=== PATIENT | male | born 1970 | race African-American/Black ===

== ENCOUNTER 2021-07-26 18:29 | Inpatient (IN) | payer OTHER ==
[~2021-07-26] VITALS: Ht 180.3 cm; Wt 83.9 kg
[2021-07-26 18:32] VITALS: BP 130/78
[2021-07-26 19:24] LABS: ABSOLUTE NEUTROPHILS 5.5 thou/uL (1.4-8.2); BASOPHILS 0.4 % (0.0-2.0); EOSINOPHILS 0.1 % (0.0-3.0); HEMATOCRIT 51.8 % (42.0-52.0); HEMOGLOBIN 17.2 gm/dL (14.0-18.0); LYMPHOCYTES 7.7 % (24.0-44.0); MCH 26.6 pg (26.0-34.0); MCHC 33.2 g/dL (28.0-37.0); MCV 80.2 fL (80.0-100.0); MONOCYTES 11.3 % (1.0-8.0); PLATELET COUNT 224 thou/uL (150-400); POLYS 80.5 % (36.0-66.0); RBC 6.46 mil/uL (4.50-6.00); WBC 6.8 thou/uL (4.0-11.0)
[2021-07-26 19:35] LABS: CALCIUM 8.5 mg/dL (8.5-10.1); CREATININE 1.6 mg/dL (0.7-1.3); POTASSIUM 4.9 mmol/L (3.5-5.1)
[2021-07-26 22:29] VITALS: BP 106/72
[2021-07-26 22:44] VITALS: BP 106/65
--- NOTE | 2021-07-27 00:51 | NUR ---
PT ADMITTED FROM ER FROM HOME FOR COVID + INCREASED SYMPTOMS AND SOA. A&0X4. VSS AFEBRILE SATS WNL PRESENTLY. NO C/O PAIN. NO S/S DISTRESS. NS AT 100 INFUSING AND ZOSYN LOADING DOSE INFUSING R AC. DENIES PAIN OR SOA PRESENTLY. ORIENTED PT TO RM, FALL PRECAUTONS, MEDICATIONS AND POC. BED DOWN, CALL LIGHTIN REACH, BED ALARM IS ON. INSTRUCTED PT ON ALL PRECAUTIONS.
[2021-07-27 04:33] VITALS: BP 124/80
[2021-07-27 05:15] LABS: CALCIUM 8.1 mg/dL (8.5-10.1); CREATININE 1.8 mg/dL (0.7-1.3); POTASSIUM 4.7 mmol/L (3.5-5.1)
[2021-07-27 05:25] LABS: HEMATOCRIT 45.9 % (42.0-52.0); MCH 26.8 pg (26.0-34.0); MCHC 32.8 g/dL (28.0-37.0); MCV 81.8 fL (80.0-100.0); RBC 5.61 mil/uL (4.50-6.00); RDW 15.3 % (10.5-14.5); WBC 4.3 thou/uL (4.0-11.0)
[2021-07-27 05:29] LABS: HEMOGLOBIN 15.1 gm/dL (14.0-18.0)
--- NOTE | 2021-07-27 06:03 | NUR ---
PT PROGRESSING TOWARDS D/C GOALS. HE STATES THIS MORNING HE FEELS SO MUCH BETTER NOW AFTER THE FLUIDS AND ABX. HE ALSO WAS ABLE TO EAT A SANDWICH TRAY. DENIED NAUSEA. NO DIARRHEA. VSS AFEBRILE.SATS WNL ON 3LNC. PT SLEEPING PRESENTLY SR ON THE MONITOR. NS INFUSING AND ZOSYN ABX.
--- NOTE | 2021-07-27 07:18 | EKG ---
[address] [place] [address] ELECTROCARDIOGRAM REPORT Name: HEIDI CAMPBELL LEENA Room #: 363-P ADM IN M.R.#: [id number] Admission: 07/26/21 Attend Phys: Naveed Hanna MD Discharge: Date of : 68 Report #: [id number] [facility] ED Test Date: 2021-07-26 Test Time: 18:53:00 Pat Name: HEIDI CAMPBELL Department: Room: 363 P Gender: M Home Care Companion: RAMONA : 1970 Requested By: Jaguar Bolanos Order Number: [id number] MD: Richie Chacon Measurements Intervals [place] Rate: 85 P: 49 WV: 172 QRS: -4 QRSD: 83 T: 19 QT: 334 QTc: 398 Interpretive Statements Sinus rhythm Consider left atrial enlargement Consider left ventricular hypertrophy Abnrm T, consider ischemia, anterolateral lds Baseline wander in lead(s) V3 No previous ECG available for comparison Electronically Signed On 07-27-2021 7:18:32 [employer] by Richie Chacon [email or web address] <ELECTRONICALLY SIGNED> By: Richie Chacon MD, [facility] 07/27/21717 52 52 Richie Chacon MD, FAC /EPI
[2021-07-27 07:19] VITALS: BP 131/85
--- NOTE | 2021-07-27 10:51 | NUR ---
Assess due to high nutrition screening risk for wt loss and decreased intake. Pt admit with complications from COVID+. Has been feeling ill past week with loss appetite, smell, fatigue, and GI issues. Wt loss 12 lb likely due to dehydration. UMBERTO improving, and pt feeling better. Ate 100% of sandwich snack last evening. Low nutrition risk at this time.
--- NOTE | 2021-07-27 15:20 | NUR ---
INITIAL ASSESSMENT: Received consult for discharge planning. SW reviewed chart and spoke with nursing and attending physician. Pt was admitted from home due to COVID. Pt placed in Enhanced Isolation. Pt has not received a COVID vaccination. Pt has been febrile and is currently on 3L of O2. Pt is on IV abx. ID consulted. SW placed call to pt's room. No answer. SW left voice message on listed contact number ([phone]). Per chart, pt is alert/orientated x 4. Pt lives at home. Pt does have health insurance. SW to follow up with pt to obtain info and discuss discharge planning.
--- NOTE | 2021-07-27 16:05 | NUR ---
assumed care of pt at 0700. pt aox4 no acute distress. afebrile throughout shift. on 3L NC. showered with staff assistance. ivf infusing per order. voicing no concerns at this time. shantim.
[2021-07-27 16:52] LABS: ALBUMIN 2.3 g/dL (3.4-5.0); DIRECT BILIRUBIN 0.2 mg/dL (<0.1-0.2); TOTAL BILIRUBIN 0.6 mg/dL (0.2-1.0); TOTAL PROTEIN 6.8 g/dL (6.4-8.2)
[2021-07-27 17:53] VITALS: BP 141/91
[2021-07-27 19:57] VITALS: BP 140/95
--- NOTE | 2021-07-27 20:55 | NUR ---
Pt alert and oriented x4. VSS afebrile presently. Unlabored on 6lnc. Sat 93% encouraged pt to TC&DB. Denied pain or SOA. iv fluids and abx infusing. Bed down. Call light in reach.
[2021-07-28 02:14] LABS: ABSOLUTE NEUTROPHILS 7.1 thou/uL (1.4-8.2); BASOPHILS 0.2 % (0.0-2.0); HEMATOCRIT 42.8 % (42.0-52.0); HEMOGLOBIN 13.8 gm/dL (14.0-18.0); LYMPHOCYTES 5.3 % (24.0-44.0); MCH 26.2 pg (26.0-34.0); MCHC 32.3 g/dL (28.0-37.0); MCV 81.1 fL (80.0-100.0); PLATELET COUNT 224 thou/uL (150-400); POLYS 87.5 % (36.0-66.0); RBC 5.28 mil/uL (4.50-6.00); WBC 8.2 thou/uL (4.0-11.0)
[2021-07-28 03:04] LABS: INR 1.09; PROTIME 11.8 Seconds (10.5-12.1)
[2021-07-28 03:54] LABS: ALBUMIN 2.1 g/dL (3.4-5.0); CREATININE 1.5 mg/dL (0.7-1.3); POTASSIUM 5.2 mmol/L (3.5-5.1); TOTAL BILIRUBIN 0.3 mg/dL (0.2-1.0); TOTAL PROTEIN 6.2 g/dL (6.4-8.2)
[2021-07-28 04:00] VITALS: BP 126/84
--- NOTE | 2021-07-28 07:29 | NUR ---
PT HAS HAD NO C/O PAIN OR SOA TONIGHT. C/O SORE NOSE DUE TO OXYGEN. HUMIDIFIED AIR APPLIED PER RT. NO FURTHER C/O. MRSA AND URINE SAMPLE SENT TO LAB.
[2021-07-28 07:45] VITALS: BP 132/82
--- NOTE | 2021-07-28 11:26 | HC ---
[facility] [place] [address] CONSULTATION Name: HEIDI CAMPBELL Room #: 363-P ADM IN M.R.#: [id number] Admission: 07/26/21 Attend Phys: Naveed Hanna MD Discharge: Date of : 68 Report #: [id number] THIS REPORT FOR: cc: NO FAMILY PHYSICIAN or PCP NO FAMILY PHYSICIAN or PCP Earnest Martinez MD ~ DATE OF SERVICE: 07/27/2021 INFECTIOUS DISEASE CONSULTATION ATTENDING PHYSICIAN: Dr. Hanna. REASON FOR EVALUATION: COVID-19 infection, complicated by pneumonitis, respiratory failure. HISTORY OF PRESENT ILLNESS: Chart reviewed. The patient examined. This is a 51-year-old gentleman who presented to the Emergency Room with complaints of feeling poorly. He noted it had started several days before and had developed generalized myalgias and headache. He felt he had the flu. Eventually, he was tested and was found to be COVID positive last Sunday, roughly 5 days ago. Subsequently, he developed dyspnea and short of breath. He has had cough. It has been somewhat productive. He has had a diminished appetite with poor p.o. intake. An evaluation in the Emergency Room showed multifocal infiltrates, again was confirmed to have a coronavirus positive test, mildly elevated lactic acid of 2.3. He was noted to have a low-grade temperature elevation; however, this has normalized today. He is currently on supplemental oxygen at 3 liters per nasal cannula. He was empirically started on combination therapy with azithromycin and Zosyn as well as corticosteroids with dexamethasone and vitamins. ALLERGIES: None known. CURRENT MEDICATIONS: Include ascorbic acid, heparin, dexamethasone, pantoprazole, zinc, guaifenesin, Zosyn and azithromycin. PAST MEDICAL HISTORY: Otherwise, unremarkable. SOCIAL HISTORY: Nonsmoker. No illicit drug use. No ethanol. FAMILY HISTORY: Noncontributory. REVIEW OF SYSTEMS: Otherwise, unremarkable. PHYSICAL EXAMINATION: GENERAL: He is alert, cooperative. He is in cfej-hk-goaqskga distress. He is generally lucid, appears ill, not toxic, afebrile. [address] [address] CONSULTATION Name: HEIDI CAMPBELL CELESTINA LEENA Room #: 363-P [facility] IN .R.#: [id number] Admission: 07/26/21 Attend Phys: Naveed Hanna MD Discharge: Date of : 68 Report #: [id number] VITAL SIGNS: Temperature 97.7, pulse 59, respirations 18, blood pressure 131/85. SKIN: Warm, dry, no rashes. HEENT: Normocephalic. Extraocular muscles intact. Nasal cannula in place. NECK: Supple. LUNGS: Bilateral few scattered coarse breath sounds. HEART: Regular. I do not appreciate a murmur. ABDOMEN: Soft, nontender. EXTREMITIES: No cyanosis. GENITOURINARY AND RECTAL: Deferred. LABORATORY DATA: Blood cultures collected at time of admission are sterile thus far. Electrolytes: Sodium 141, potassium 4.7, chloride 105, bicarbonate is 25, anion gap of 11, BUN and creatinine 17 and 1.8, glucose of 162. CBC: White count of 4.3, H and H 15.1 and 45.9, platelets of 220. Ferritin of 539. Sed rate of 5. Most recent lactic acid 1.6, down from 2.3. Procalcitonin 0.05. Chest x-ray as described above. ASSESSMENT AND PLAN: COVID-19 infection, complicated by pneumonitis and respiratory failure. We will continue expanded approach. We will add remdesivir to his regimen. He does clinically continue oxygen therapy as required. We will monitor expectantly. <ELECTRONICALLY SIGNED> By: Earnest Martinez MD 07/28/21 1126 [id number] [id number] Earnest Martinez MD /nt
--- NOTE | 2021-07-28 13:15 | NUR ---
SW reviewed chart and spoke with nursing and attending physician. Pt remains in Enhanced Isolation due to COVID. Pt is afebrile and on 6L of O2. Pt is on IV meds and Remdesivir. Pt with elevated D-Dimer. No weekend discharge planned. SW spoke with pt via phone. Introduced role of SW. Pt is alert/orientated x 4. Pt reports he lives at home alone. Prior to admission, pt was independent with ADLs. No use of DME. Pt is employed and has health insurance. Pt states he has a PCP, but has not seen him for a couple of years. SW explained need to follow up with a PCP after discharge. Pt verbalized understanding. Therapy evals to be ordered when pt is able to participate. Plan is for pt to discharge home when medically stable. SAWYER is following to assist as needed with discharge planning.
[2021-07-28 16:09] VITALS: BP 120/70
[2021-07-28 20:01] VITALS: BP 122/80
[2021-07-29 04:22] LABS: CALCIUM 7.8 mg/dL (8.5-10.1); CREATININE 1.6 mg/dL (0.7-1.3); POTASSIUM 5.3 mmol/L (3.5-5.1); TOTAL BILIRUBIN 0.2 mg/dL (0.2-1.0); TOTAL PROTEIN 5.3 g/dL (6.4-8.2)
[2021-07-29 05:09] VITALS: BP 144/90
[2021-07-29 08:02] VITALS: BP 143/93
[2021-07-29 15:04] VITALS: BP 140/81
--- NOTE | 2021-07-29 16:08 | HC ---
[facility] [place] [address] CONSULTATION Name: HEIDI CAMPBELL Room #: 363-P ADM IN M.R.#: [id number] Admission: 07/26/21 Attend Phys: Naveed Hanna MD Discharge: Date of : 68 Report #: [id number] THIS REPORT FOR: cc: NO FAMILY PHYSICIAN or PCP NO FAMILY PHYSICIAN or PCP Bryan Alfonso MD ~ DATE OF SERVICE: 07/27/2021 INFECTIOUS DISEASES CONSULTATION NOTE REASON FOR CONSULTATION: I was asked to evaluate concerning COVID-19 pneumonia. HISTORY OF PRESENT ILLNESS: The patient is a 51-year-old unvaccinated for COVID-19, who has been ill for approximately 1 week. He did test COVID positive. He has had shortness of breath, cough with green sputum production, myalgias, arthralgias, fever, malaise, anorexia, diarrhea, initially lost taste and smell, which has gradually improved, developed suicidal ideation. Presents to the emergency room for further evaluation, now on 6 liters of oxygen per nasal cannula. Mental status is stabilized. No history of pneumonia, HIV risk factors, tuberculosis exposure, tobacco use. REVIEW OF SYSTEMS: A 14-point review of system was negative other than what has been described above. PAST MEDICAL HISTORY: Unremarkable. FAMILY HISTORY: Coronary artery disease. SOCIAL HISTORY: Nonsmoker, no significant alcohol intake. ALLERGIES: None known. MEDICATIONS: No medications prior to his admission. PHYSICAL EXAMINATION: GENERAL: He is afebrile and hemodynamically stable. He is alert, cooperative, and pleasant. No acute distress. SKIN: Without rash with multiple tattoos. No palpable adenopathy. He was of normal weight. HEENT: Eyes without scleral icterus. Mouth without mucositis. NECK: Supple. LUNGS: Crackles heard in the bases bilaterally. HEART: Regular, without murmur, gallop, or rub. ABDOMEN: Soft and nontender with no hepatosplenomegaly or mass. EXTREMITIES: Without clubbing, cyanosis, or edema. Spine was nontender. No CVA tenderness. [facility] [address] [place] [address] CONSULTATION Name: HEIDI CAMPBELL CELESTINA LEENA Room #: 363-P ADM IN M.R.#: [id number] Admission: 07/26/21 Attend Phys: Naveed Hanna MD Discharge: Date of : 68 Report #: [id number] GENITAL AND RECTAL: Not performed. NEUROLOGIC: Cranial nerves intact and strength in the upper and lower extremities was within normal limits. PSYCHIATRIC: Mood without anxiety. LABORATORY DATA: Reviewed. MICROBIOLOGY: Reviewed. IMAGING: Chest x-ray reviewed. IMPRESSION: COVID-19 pneumonia with bilateral pulmonary infiltrates and hypoxia in an unvaccinated individual. Also, has acute kidney injury and associated depression with transient suicidal ideation. RECOMMENDATION: The patient will be given anti-inflammatory and antiviral therapy. If he should show any signs of progression, we will begin IL-6 inhibitor. He will continue antibiotic coverage pending culture results. Follow serial laboratory studies. I have discussed plan of care with the patient who is in agreement with this program. <ELECTRONICALLY SIGNED> By: Bryan Alfonso MD 07/29/21 1608 [id number] Bryan Alfonso MD /nt
[2021-07-29 19:28] VITALS: BP 153/87
--- NOTE | 2021-07-30 02:27 | NUR ---
maintaining oxygenation on 4 liters. denies pain. no S.I. conversations. he is calm and able to rest. no discharge concerns voiced.
[2021-07-30 05:35] LABS: HEMATOCRIT 44.5 % (42.0-52.0); HEMOGLOBIN 14.7 gm/dL (14.0-18.0); MCH 26.6 pg (26.0-34.0); MCV 80.7 fL (80.0-100.0); PLATELET COUNT 269 thou/uL (150-400); RBC 5.51 mil/uL (4.50-6.00); RDW 15.4 % (10.5-14.5); WBC 9.5 thou/uL (4.0-11.0)
[2021-07-30 05:55] LABS: ALBUMIN 2.2 g/dL (3.4-5.0); CALCIUM 8.3 mg/dL (8.5-10.1); CREATININE 1.5 mg/dL (0.7-1.3); POTASSIUM 5.3 mmol/L (3.5-5.1); TOTAL BILIRUBIN 0.2 mg/dL (0.2-1.0); TOTAL PROTEIN 6.1 g/dL (6.4-8.2)
[2021-07-30 07:41] LABS: ABSOLUTE NEUTROPHILS 7.8 thou/uL (1.4-8.2); ATYPICAL LYMPHS 5 %; POIKILOCYTOSIS 1+
[2021-07-30 07:52] VITALS: BP 155/104
[2021-07-30 16:02] VITALS: BP 136/103
[2021-07-30 19:16] VITALS: BP 125/86
[2021-07-31 04:32] LABS: ABSOLUTE NEUTROPHILS 10.3 thou/uL (1.4-8.2); BASOPHILS 0.2 % (0.0-2.0); EOSINOPHILS 0.1 % (0.0-3.0); HEMATOCRIT 47.7 % (42.0-52.0); HEMOGLOBIN 15.5 gm/dL (14.0-18.0); LYMPHOCYTES 6.3 % (24.0-44.0); MCH 26.1 pg (26.0-34.0); MCHC 32.4 g/dL (28.0-37.0); MCV 80.5 fL (80.0-100.0); MONOCYTES 7.1 % (1.0-8.0); PLATELET COUNT 241 thou/uL (150-400); POLYS 86.3 % (36.0-66.0); RBC 5.93 mil/uL (4.50-6.00); RDW 14.9 % (10.5-14.5)
[2021-07-31 04:34] VITALS: BP 149/93
[2021-07-31 04:41] LABS: ALBUMIN 2.1 g/dL (3.4-5.0); CALCIUM 8.1 mg/dL (8.5-10.1); CREATININE 1.6 mg/dL (0.7-1.3); TOTAL BILIRUBIN 0.2 mg/dL (0.2-1.0); TOTAL PROTEIN 5.8 g/dL (6.4-8.2)
--- NOTE | 2021-07-31 05:14 | NUR ---
Up in the recliner chair till HS. Up ad preston in room with steady gait. O2 at 6L/NC , tachypneic with RR of 28/min and he does get short of breath with exertion. Cont. on enhanced precaution,afebrile. Voiding per urinal.
[2021-07-31 07:25] LABS: HIV ANTIBODY Non Reactive (Non Reactive)
[2021-07-31 08:30] VITALS: BP 128/71
[2021-07-31 15:47] VITALS: BP 127/82
--- NOTE | 2021-07-31 18:42 | NUR ---
PATIENT HAS BEEN GOOD ALL DAY. HE WOULD LIKE TO GO HOME TOMORROW. HE WAS TOLD THAT HE IS ON 6L OF [place] AND THAT IS TO MUCH 02 NEED FOR HIM TO HAVE AT HOME. PATIENT IS RESTING IN BED WITH CALL PARKS IN REACH.
[2021-07-31 20:16] VITALS: BP 114/71
[2021-08-01 04:29] VITALS: BP 140/59
--- NOTE | 2021-08-01 05:10 | NUR ---
PROGRESS PT A/O X4. LUNGS CLEAR BUT DIMINISHED. ON 5 LITERS O2 DENIES SOB. UP AD NORBERT IN ROOM. VOIDING QS PER URINAL. TOLERATING DIET WITH ADEQUATE INTAKE. VSS, CONTINUE POC.
[2021-08-01 06:29] LABS: RDW 15.5 % (10.5-14.5); WBC 13.5 thou/uL (4.0-11.0)
[2021-08-01 06:34] LABS: ABSOLUTE NEUTROPHILS 12.1 thou/uL (1.4-8.2); BASOPHILS 0.7 % (0.0-2.0); HEMATOCRIT 50.3 % (42.0-52.0); HEMOGLOBIN 16.2 gm/dL (14.0-18.0); LYMPHOCYTES 3.9 % (24.0-44.0); MCH 26.1 pg (26.0-34.0); MCHC 32.1 g/dL (28.0-37.0); MCV 81.1 fL (80.0-100.0); MONOCYTES 5.4 % (1.0-8.0); PLATELET COUNT 265 thou/uL (150-400); RBC 6.21 mil/uL (4.50-6.00)
[2021-08-01 06:46] LABS: ALBUMIN 2.3 g/dL (3.4-5.0); CALCIUM 8.3 mg/dL (8.5-10.1); CREATININE 1.7 mg/dL (0.7-1.3); POTASSIUM 4.7 mmol/L (3.5-5.1); TOTAL BILIRUBIN 0.5 mg/dL (0.2-1.0); TOTAL PROTEIN 6.1 g/dL (6.4-8.2)
[2021-08-01 07:38] VITALS: BP 149/89
--- NOTE | 2021-08-01 12:07 | NUR ---
SAWYER reviewed chart and spoke with nursing and attending physician. Pt remains in Enhanced Isolation due to COVID. Pt is afebrile and on 4L of O2. Pt is on IV abx. Pt has completed course of Remdesivir. Rest/exercise oximetry ordered to be completed today to determine home O2 needs. Pt may be able to discharge later today. SAWYER spoke with pt via phone to discuss discharge plan. Pt is aware and in agreement with plan. Confirmed pt's home address and phone number for home O2 set up, if needed. Options for DME companies provided. No preference voiced. SW faxed referral to [facility]. Notified [facility] liaison. Awaiting rest/exercise oximetry and script for home O2, if needed. SAWYER is following to assist as needed with discharge planning.
[2021-08-01 15:29] VITALS: BP 131/85
--- NOTE | 2021-08-01 19:52 | NUR ---
PT PROGRESSING ON PLAN OF CARE WITH IMPROVED REPORTED RESPIRATORY SYMPTOMS. UNABLE TO DC TODAY DUE TO CONTINUED NEED FOR HIGH AMOUNT OF SUPPLEMENTAL O2 WITH AMBULATION. PLAN TO REATTEMPT TOMORROW.
[2021-08-01 21:00] VITALS: BP 133/65
--- NOTE | 2021-08-02 02:10 | NUR ---
RESTING QUIETLY. DENIES PAIN. HE IS CALM AND COOPERATIVE AND WANTING TO GET BETTER. NO DISCHARHE CONCERNS VOICED.
[2021-08-02 04:46] LABS: ALBUMIN 2.4 g/dL (3.4-5.0); CALCIUM 8.4 mg/dL (8.5-10.1); CREATININE 1.4 mg/dL (0.7-1.3); POTASSIUM 4.5 mmol/L (3.5-5.1); TOTAL BILIRUBIN 0.3 mg/dL (0.2-1.0)
[2021-08-02 05:05] LABS: HEMATOCRIT 48.8 % (42.0-52.0); HEMOGLOBIN 15.9 gm/dL (14.0-18.0); MCH 26.4 pg (26.0-34.0); MCHC 32.7 g/dL (28.0-37.0); MCV 80.7 fL (80.0-100.0); PLATELET COUNT 241 thou/uL (150-400); RBC 6.05 mil/uL (4.50-6.00); RDW 15.2 % (10.5-14.5); WBC 16.6 thou/uL (4.0-11.0)
[2021-08-02 06:13] VITALS: BP 135/94
[2021-08-02 07:45] VITALS: BP 128/87
--- NOTE | 2021-08-02 10:32 | NUR ---
Nutrition follow up: Pt continues on enhanced precautions d/t covid. Pt with noted improvement in respiratory symptoms, was set to d/c today, but O2 requirements still too high to maintain sats >90% on exertion. Intakes at meals 75-100%, weight stable. BM 08/01. Remains low nutrition risk.
[2021-08-02] MEDS ORDERED: VITAMIN C1000 MG PO (11:19)
[2021-08-02] MEDS ORDERED: DEXAMETHASONE 44 M1 PO (11:19)
[2021-08-02] MEDS ORDERED: VITAMIN D325 MC2 PO (11:19)
[2021-08-02] MEDS ORDERED: OXYGEN MISCELL (11:20)
--- NOTE | 2021-08-02 11:35 | NUR ---
SAWYER reviewed chart and spoke with nursing and attending physician. Pt remains in Enhanced Isolation due to COVID. Pt is afebrile and on 4L of O2 at rest. Pt is on IV abx. Pt to have repeat rest/exercise oximetry completed today to determine home O2 needs. Pt was 80% on room air with activity yesterday and needed 6L of O2 to maintain O2 sat of 90%. [facility] is following to provide home O2. SAWYER spoke with pt via phone to provide update and discuss discharge plan. Pt is aware and in agreement with plan. Pt is hoping to discharge home today. Pt states he will have transportation home when discharged. Awaiting rest/exercise oximetry and will need script for O2 if needed. SAWYER is following to assist as needed with discharge planning.
[2021-08-02 11:54] VITALS: BP 128/87
[2021-08-02 12:14] LABS: ABSOLUTE NEUTROPHILS 14.1 thou/uL (1.4-8.2); MYELOCYTES 1 %
[2021-08-02 12:15] LABS: ANISOCYTOSIS SLIGHT; BURR CELLS FEW; POIKILOCYTOSIS SLIGHT
[2021-08-02 13:33] VITALS: BP 128/87
[2021-08-02 14:15] VITALS: BP 128/87
--- NOTE | 2021-08-02 18:08 | NUR ---
PT DISCHARGED HOME W/ O2 6L WITH ACTIVITY AND RA AT REST...[facility] HAS CONTACTED [facility] FOR DELIVERY OF HOME CONCENTRATOR.. [facility] WILL PICKUP THE RXS...
[2021-08-04 16:36] LABS: T-SPOT.TB Negative
== END 2021-08-02 18:19 | disposition home or self-care (01) | DRG 871 ==
LOC: ER 18:29 → EROBS 20:04 → 3W 20:04
PROVIDERS: Emergency Medicine; Nurse Practitioner Family; Specialist; ADMIT Internal Medicine; ATTEND Internal Medicine
PROC: XW033E5 Introduction of Remdesivir Anti-infective into Peripheral Vein, Percutaneous Approach, New Technology Group 5 (ICD-10-PCS; principal; 2021-07-27)
DX: A41.89 Other specified sepsis (principal); U07.1 COVID-19; J12.82 Pneumonia due to coronavirus disease 2019; J96.01 Acute respiratory failure with hypoxia; N17.9 Acute kidney failure, unspecified; R45.851 Suicidal ideations; F32.9 Major depressive disorder, single episode, unspecified; E87.5 Hyperkalemia; Z82.49 Family history of ischemic heart disease and other diseases of the circulatory system; Z79.899 Other long term (current) drug therapy; Z28.21 Immunization not carried out because of patient refusal
CPT/HCPCS: 10879